=== PATIENT | male | born 1995 | race African-American/Black ===

== ENCOUNTER 2017-06-21 17:38 | Emergency (ER) | payer OTHER, SELFPAY ==
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
== END 2017-06-21 19:08 | disposition home or self-care (01) ==
LOC: ERS 17:38
DX: S39.012A Strain of muscle, fascia and tendon of lower back, initial encounter (principal); S29.012A Strain of muscle and tendon of back wall of thorax, initial encounter; F17.210 Nicotine dependence, cigarettes, uncomplicated; V89.2XXA Person injured in unspecified motor-vehicle accident, traffic, initial encounter
CPT/HCPCS: 72100

== ENCOUNTER 2018-09-01 14:52 | Emergency (ER) | payer OTHER | END 2018-09-01 16:16 | disposition left against medical advice (07) | LOC: ERS 14:52 | DX: Z53.21 Procedure and treatment not carried out due to patient leaving prior to being seen by health care provider (principal) ==

== ENCOUNTER 2018-09-06 00:35 | Emergency (ER) | payer OTHER ==
[2018-09-06] MEDS ORDERED: Ketorolac Tromethamine 30 MG/ML VIAL ONE (02:30)
[2018-09-06] MEDS ORDERED: Bacitracin Zinc 1 Packet ONE (02:42)
[2018-09-06] MEDS ORDERED: Adacel (T-DAP) 0.5 ML SYRINGE ONE (02:54)
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
== END 2018-09-06 04:00 | disposition home or self-care (01) ==
LOC: ERS 00:35
DX: T24.112A Burn of first degree of left thigh, initial encounter (principal); F17.210 Nicotine dependence, cigarettes, uncomplicated; Z23 Encounter for immunization; V03.90XA Pedestrian on foot injured in collision with car, pick-up truck or van, unspecified whether traffic or nontraffic accident, initial encounter
CPT/HCPCS: 16000; 71046; 72170; 90471; 90715; 96372; J1885